=== PATIENT | male | born 1970 | race Caucasian/White ===

== ENCOUNTER 2019-09-03 13:32 | Emergency (ER) | payer MEDICAID, OTHER ==
[~2019-09-03] VITALS: Ht 180.3 cm; Wt 93.3 kg
[2019-09-03 13:41] VITALS: BP 165/89
--- NOTE | 2019-09-03 13:48 | NUR ---
PT AMBULATORY WITH STEADY GAIT FROM TRIAGE TO ROOM. SITTING IN CHAIR. NADN.
--- NOTE | 2019-09-03 13:58 | NUR ---
PT HERE FOR REDNESS AND DRAINAGE TO EYES. PRESENT FOR A FEW WEEKS. CURRENTLY SITTING IN CHAIR. NADN. DENIES VISION CHANGE.
[2019-09-03] MEDS ORDERED: METFORMIN (14:00)
== END 2019-09-03 14:34 | disposition home or self-care (01) ==
LOC: ED 14:25
DX: H10.33 Unspecified acute conjunctivitis, bilateral (principal); E11.9 Type 2 diabetes mellitus without complications; F17.200 Nicotine dependence, unspecified, uncomplicated
CPT/HCPCS: 99283